=== PATIENT | female | born 2000 | race Two or more races ===

== ENCOUNTER 2024-07-28 18:01 | Emergency (ER) | payer SELFPAY ==
[~2024-07-28] VITALS: Ht 139.7 cm; Wt 44.0 kg
[2024-07-28 18:48] VITALS: PULSE 55; RESP 16; TEMP 98.9
[2024-07-28] MEDS ORDERED: AUGMENTIN 500-1 EACH PO (18:55)
[2024-07-28 19:14] VITALS: BP 123/75; PULSE 55; RESP 16; TEMP 98.9; O2SAT 100
== END 2024-07-28 19:08 | disposition home or self-care (01) ==
LOC: ER 18:14
DX: K04.7 Periapical abscess without sinus (principal)
CPT/HCPCS: 99282